=== PATIENT | female | born 1980 | race Caucasian/White ===

== ENCOUNTER 2017-07-05 08:29 | Emergency (ER) | END 2017-07-05 10:51 | disposition home or self-care (01) ==

== ENCOUNTER 2018-01-16 10:40 | Emergency (ER) | END 2018-01-16 12:36 | disposition home or self-care (01) ==

== ENCOUNTER 2018-09-23 19:00 | Emergency (ER) | payer SELFPAY ==
[~2018-09-23] VITALS: Ht 160 cm; Wt 118.0 kg
[~2018-09-23 19:00] MED LIST: ACET500C5 PO; ALBU8.5H8 INH; DOCU-144 PO; FLOV110 INHALATION; GUAI5SYR2 PO; HYDR-3498 PO; HYDR-3601 PO; IBUP-1542 PO; ONDA4TAB35 PO; OSEL75CA23 PO; RTPRO5
[2018-09-23 19:21] VITALS: BP 154/83; Ht 160 cm; Wt 118.0 kg
[2018-09-23] MEDS ORDERED: ALBUTEROL 0.083% (NEB) 2.5 MG/3 ML AMP HHN STA (20:49)
[2018-09-23] MEDS ORDERED: IPRATROPIUM (NEB) 0.5 MG/2.5 ML AMP HHN ONE (21:00)
[2018-09-23] MEDS ORDERED: METHYLPREDNISOLONE 125 MG INJ IM ONE (21:00)
--- NOTE | 2018-09-23 21:12 | ERD ---
ER Documentation Chief Complaint Chief Complaint COUGH WITH INTERMITTENT FEVER X 2 WEEKS HPI This is a 37-year-old female who presents to emergency department with complaints of cough with intermittent fever for about 2 weeks. Stated that she is asthmatic and just has been using her inhaler without relief. LMP: 09/03/2018. . Denies headache, head injury, loss of consciousness, dizziness, neck pain, neck stiffness, throat pain, difficulty swallowing, difficulty breathing lying flat, shoulder pain, chest pain, back pain, abdominal pain, nausea, vomiting, consti pation, diarrhea, urinary symptoms, or possibility being , loss of bowel and bladder control, trauma, injury, falls, difficulty walking due to pain, numbness or tingling sensation, calf pain, recent travel, recent major surgery in the last 3 weeks, calf pain, recent long travel, recent exposure to any illness, recent antibiotic use in the last 3 months, chills, seizures. Past medical history: Asthma. Medication: Pro-air. Surgical history: Social: Denies smoking, use of alcoholic beverages, use of illegal drugs. ROS All systems reviewed and are negative except as per history of present illness. Medications Home Meds Active Scripts Prednisone* (Prednisone*) 20 Mg Tab, 40 MG PO DAILY for 4 Days, TAB Prov:GINGER GREY F 09/23/18 Albuterol Sulfate* (Albuterol Sulfate* Neb) 0.083%-3 Ml Neb, 2.5 MG NEB Q4 PRN for SHORTNESS OF BREATH, #30 EA Prov:PASILAVANESSA GARRETTAR F 09/23/18 Albuterol Sulfate* (Proair HFA*) 8.5 Gm Hfa.aer.ad, 2 PUFF INH Q4 PRN for WHEEZING, #1 INHALER Prov:PASILAGINGER GARRETT F 09/23/18 Benzonatate* (Tessalon Perle*) 100 Mg Capsule, 100 MG PO Q8H PRN for COUGH, #15 CAP Prov:PASILAGINGER GARRETT F 09/23/18 Ibuprofen* (Motrin*) 800 Mg Tab, 800 MG PO Q6H PRN for PAIN AND OR ELEVATED TEMP, #30 TAB Prov:PASILAGINGER GARRETT F 09/23/18 Amoxicillin/Potassium Clav (Amox-Clav 875-125 mg Tablet) 875-125 mg Tab, 1 TAB PO BID for 10 Days, #20 TAB Prov:GINGER GREY 09/23/18 Acetaminophen* (Tylophen*) 500 Mg Capsule, 1 CAP PO Q6H PRN for PAIN AND OR ELEVATED TEMP, #30 CAP Prov:DINAH REEVES PA-C 01/16/18 Ibuprofen* (Motrin*) 600 Mg Tab, 600 MG PO Q6, #30 TAB Prov:DINAH REEVES-C 01/16/18 Fluticasone Propionate* (Flovent* HFA 110) 12 Gm Inha, 1 PUFF INHALATION BID, #1 INHALER Prov:DINAH REEVES-C 07/05/17 Albuterol Sulfate* (Proair HFA*) 8.5 Gm Hfa.aer.ad, 2 PUFF INH Q4, #1 INHALER Prov:DINAH REEVES-C 07/05/17 Guaifenesin-Dextromethorphan* (Robitussin* DM) 100MG/10MG/5ML Syrup, 10 ML PO Q6H PRN for COUGH for 5 Days, ML Prov:DINAH REEVES-C 07/05/17 Acetaminophen* (Tylophen*) 500 Mg Capsule, 1 CAP PO Q6H PRN for PAIN AND OR ELEVATED TEMP, #30 CAP Prov:DINAH REEVES-C 07/05/17 Ibuprofen* (Motrin*) 600 Mg Tab, 600 MG PO Q6, #30 TAB Prov:DINAH REEVES-C 07/05/17 Oseltamivir Phosphate* (Tamiflu*) 75 Mg Capsule, 75 MG PO BID for 5 Days, CAP Prov:DINAH REEVES-C 07/05/17 Acetaminophen* (Tylophen*) 500 Mg Capsule, 1 CAP PO Q6H PRN for PAIN, #20 CAP Prov:MANAGUELOD,JAZMINE P [employer] 01/02/16 Hydrocodone Bit-Acetaminophen (Hydrocodone Bit-APAP) 5-325MG Tablet, 1 TAB PO Q6 H PRN for PAIN, #7 TAB Prov:SADELORETA RODRIGUEZ 09/28/15 Docusate Sodium* (Colace*) 100 Mg Cap, 100 MG PO BID, #20 CAP Prov:SADEORA,LORETA 09/28/15 Ondansetron Hcl* (Zofran* ODT) 4 mg -ODT Tab.disper, 4 MG PO Q6 PRN for NAUSEA AND/OR VOMITING, #15 TAB Prov:MYNOR OLIVER 09/19/15 Hydrocodone Bit-Acetaminophen* (Gilbert*) 5-325 Mg Tab, 1 TAB PO Q6 PRN for PAIN, #15 TAB Prov:MYNOR OLIVER 09/19/15 Reported Medications Albuterol Sulfate* (Proventil* Neb) 0.5 Ml Nebu 04/25/10 Allergies Allergies: Coded Allergies: No Known Drug Allergy (Verified Allergy, Unknown, 07/05/17) PMhx/Soc History of Surgery: Yes (left knee Sx, [place]) Anesthesia Reaction: No Hx Neurological Disorder: Yes (Brain tumor) Hx Respiratory Disorders: Yes (Asthma) Hx Cardiac Disorders: No Hx Psychiatric Problems: No Hx Miscellaneous Medical Probl: No Hx Alcohol Use: Yes (Socially ) Hx Substance Use: No Hx Tobacco Use: No Smoking Status: Never smoker Physical Exam Vitals Vital Signs Date Temp Pulse Resp B/P (MAP) Pulse Ox O2 O2 Flow FiO2 Time Delivery Rate 09/23/18 91 20 97 Room Air 22:48 09/23/18 75 20 99 21 22:05 09/23/18 99.3 74 20 154/83 100 19:21 (106) Physical Exam Const: No acute distress Head: Atraumatic Eyes: Normal Conjunctiva ENT: Normal External Ears, Nose and Mouth. Throat: Uvula is midline and nondisplaced. Tonsils are +1 bilaterally with redness and with exudates. Tolerating secretions. Patent airway. Speaks full and clear sentences. No tripoding. No signs of severe airway obstruction. Neck: Full range of motion. No meningismus. Resp: No accessory muscle use in breathing. Mild wheezing bilaterally. Cardio: Regular rate and rhythm, no murmurs Abd: Soft, non tender, non distended. Normal bowel sounds. Skin: No petechiae or rashes Back: No midline or flank tenderness Ext: No cyanosis, or edema Neur: Awake and alert. No neurological deficit. Psych: Normal Mood and Affect Results 24 hrs Laboratory Tests Test 09/23/18 21:28 POC Beta HCG, Qualitative NEGATIVE Current Medications Medications Dose Sig/Sneha Start Time Status Last (Trade) Ordered Route PRN Stop Time Admin Dose Reason Admin Albuterol 5 mg ONCE STAT 09/23/18 DC 09/23/18 (Proventil HHN 20:49 22:05 0.083% (Neb)) 09/23/18 20:53 Ipratropium 0.5 mg ONCE ONCE 09/23/18 DC 09/23/18 [place] [facility] 21:00 22:04 (Atrovent 09/23/18 21:01 0.02% (Neb)) 125 mg ONCE ONCE 09/23/18 DC 09/23/18 Methylprednis IM 21:00 21:37 olone Sodium 09/23/18 21:01 Succinate (Solu-Medrol) Procedures/MDM Diagnostic tests: POC urine : Negative. Chest x-ray: Low lung volumes with linear bibasilar atelectasis. No confluent p neumonia. Treatment: Solu-Medrol IM. Albuterol and Atrovent breathing treatment. Re-evaluation:Respirations even and unlabored. No accessory muscle use in breathing. Lung sounds are clear to auscultation. Stated that she feels much better examined that she is ready to go home. Differential diagnosis I have low suspicion for meningitis, peritonsillar abscess, mastoiditis, airway obstruction, bronchospasm, pneumonia, status asthmaticus. Final diagnosis: Exudative tonsillitis. Asthmatic bronchitis. Asthma exacerbation. Prescription: Augmentin. Motrin. Pro-air. Tessalon Perles. Follow-up with PCP in the next 24-48 hours. Come back here in the emergency department for any new symptoms or any worsening symptoms. All questions and concerns were answered. Patient and family members verbalized understanding and agreed with plan of care. Hemodynamically stable on discharge. Departure Diagnosis: Primary Impression: Asthmatic bronchitis Additional Impression: Exudative tonsillitis Condition: Stable Additional Instructions: Follow-up with PCP in the next 24-48 hours. Come back here in the emergency department for any new symptoms or any worsening symptoms. GINGER GREY Sep 23, 2018 21:12
[2018-09-23] MEDS ORDERED: AMOX1TAB10 PO (22:34)
[2018-09-23] MEDS ORDERED: BENZ-6 PO (22:34)
[2018-09-23] MEDS ORDERED: IBUP800T48 PO (22:34)
[2018-09-23] MEDS ORDERED: ALBU8.5H8 INH (22:34)
[2018-09-23] MEDS ORDERED: PRED20TA PO (22:35)
[2018-09-23] MEDS ORDERED: ALBU2.5V3 NEB (22:35)
[2018-09-23 22:48] VITALS: PULSE 91; RESP 20
== END 2018-09-23 22:54 | disposition home or self-care (01) ==
LOC: FTE 19:00
DX: J45.901 Unspecified asthma with (acute) exacerbation (principal); J03.90 Acute tonsillitis, unspecified; Z85.841 Personal history of malignant neoplasm of brain
CPT/HCPCS: 71046; 81025; 94664; 96372; 99284; J2930